=== PATIENT | female | born 1950 | race Caucasian/White ===

== ENCOUNTER 2018-05-14 20:01 | Emergency (ER) | payer MEDICARE, OTHER ==
[2018-05-14 20:22] VITALS: BP 152/81; TEMP 97.8; O2SAT 95
[2018-05-14] MEDS: HYDROcodone 7.5MG/APAP 325MG 1 EA TAB PO ONE (21:25)
--- NOTE | 2018-05-14 21:27 | ED.PDOC ---
History of Present Illness - General Chief Complaint: Upper Extremity Injury Stated Complaint: rt arm/hand pain Time Seen by Provider: 05/14/18 20:20 Source: patient Exam Limitations: no limitations - History of Present Illness Initial Comments: the patient is a 67-year-old female presenting to the emergency room secondary to pain in her right forearm and her right ulnar aspect of her right hand after a tree limb fell on her part. It was a large tree limb. She does have swelling over the distal and the fifth metacarpal. She is neurovascularly preserved. Range of motion is preserved. She is uncomfortable to palpation over the area. Occurred: just prior to arrival Pain - Upper Extremity: moderate: Wrist, right, severe: Hand, right Method of Injury: other Improving Factors: immobilization Worsening Factors: movement Allergies/Adverse Reactions: Allergies NO KNOWN ALLERGY Allergy (Verified 05/14/18 20:21) Home Medications: Ambulatory Orders Bhar[place]-Upnm-Vrphwmuewl [Fioricet] 1 ea PO Q8H PRN #21 tab 05/14/18 Citalopram 05/14/18 Gabapentin [Neurontin] 05/14/18 Metoprolol Tartrate [Lopressor] 05/14/18 Pantoprazole Tablet [Protonix] 05/14/18 hydroCHLOROthiazide [Hydrochlorothiazide] 05/14/18 Review of Systems - Review of Systems Constitutional: States: no symptoms reported EENTM: States: no symptoms reported Respiratory: States: no symptoms reported Cardiology: States: no symptoms reported Gastrointestinal/Abdominal: States: no symptoms reported Genitourinary: States: no symptoms reported Musculoskeletal: States: see HPI Skin: States: see HPI Neurological: States: no symptoms reported Endocrine: States: no symptoms reported All other Systems: No Change from Baseline Past Medical History (General) - Patient Medical History Hx Hypertension: Yes Hx Diabetes: No Hx Gastroesophageal Reflux: Yes Surgical History: appendectomy, cholecystectomy - Vaccination History Hx Tetanus, Diphtheria Vaccination: No - Triage Comment ED Triage Comment: edema noted to hand at 4th and 5th digits, also edema to rt forearm where tree branch landed Family Medical History - Family History Father Family History: Unknown Physical Exam - Physical Exam General Appearance: Alert, Comfortable, No apparent distress Eyes, Ears, Nose, Throat Exam: PERRL/EOMI Neck: full range of motion, supple Cardiovascular/Respiratory: normal peripheral pulses, no respiratory distress Abdominal Exam: non-tender Back Exam: normal inspection, no vertebral tenderness Shoulder Exam: normal inspection, non-tender, no evidence of injury, normal ROM Elbow/Forearm Exam: normal inspection, non-tender, no evidence of injury, normal ROM Wrist Exam: normal ROM, abrasions - very mild superficial. Swelling as above. Hand Exam: bone tenderness, deformity, ecchymosis, swelling - see history of present illness Neuro/Tendon: normal sensation, normal motor functions, normal tendon functions , responds to pain, no evidence tendon injury Mental Status: alert, oriented x 3 Skin Exam: normal color - bruising to the right hand and forearm Comments: Vital Signs - 24 hr 05/14/18 20:16 Temperature 97.8 F Pulse Rate [ 68 Right] Respiratory 16 Rate Blood Pressure 152/81 [Left Arm] O2 Sat by Pulse 95 Oximetry Progress - Progress Progress: 05/14/18 21:28 the patient is a 67-year-old female presenting to the emergency room after having had a tree limb fall on her right forearm and hand. Final read of the x-rays is pending by radiology at this time secondary to technological difficulties however the patient does have an obvious proximal fifth metacarpal fracture. No other fractures of the forearm or hand are apparent on the non- expandable x-rays. The patient is being placed in a ulnar gutter splint with a bend placed at the metacarpal phalangeal joint to preserve carpal height and alignment. Due to the mild to moderate displacement of the base of the fifth metacarpal, I do want her to follow up with orthopedics later this coming week for a repeat x-ray and casting or other intervention as appropriate. She'll be written for Fioricet for some pain control and she can use ibuprofen as needed as well. ER warnings were given for any significant worsening. She is neurovascularly intact at this time. Follow-up as above. Departure - Departure Clinical Impression: Closed boxer's fracture Qualifiers: Encounter type: initial encounter Qualified Code(s): S62.339A - Displaced fracture of neck of unspecified metacarpal bone, initial encounter for closed fracture ICD-10 Supporting Text: right hand Disposition: Discharge to Home or Self Care Condition: Fair Departure Forms: ED Discharge - Pt. Copy, Patient Portal Self Enrollment Instructions: Boxer's Fracture (DC) Diet: regular diet Activity: no pushing/pulling with affected limb Prescriptions: Uykdabwsgyedn-Ymsn-Oiruhalekg [Fioricet] 1 ea PO Q8H PRN #21 tab PRN Reason: Pain Home Medications: Ambulatory Orders Cjfxxuvsvxrqg-Agsd-Gkgkxehgvq [Fioricet] 1 ea PO Q8H PRN #21 tab 05/14/18 Citalopram 05/14/18 Gabapentin [Neurontin] 05/14/18 Metoprolol Tartrate [Lopressor] 05/14/18 Pantoprazole Tablet [Protonix] 05/14/18 hydroCHLOROthiazide [Hydrochlorothiazide] 05/14/18 Additional Instructions: the patient is a 67-year-old female presenting to the emergency room after having had a tree limb fall on her right forearm and hand. Final read of the x-rays is pending by radiology at this time secondary to technological difficulties however the patient does have an obvious proximal fifth metacarpal fracture. No other fractures of the forearm or hand are apparent on the non- expandable x-rays. The patient is being placed in a ulnar gutter splint with a bend placed at the metacarpal phalangeal joint to preserve carpal height and alignment. Due to the mild to moderate displacement of the base of the fifth metacarpal, I do want her to follow up with orthopedics later this coming week for a repeat x-ray and casting or other intervention as appropriate. She'll be written for Fioricet for some pain control and she can use ibuprofen as needed as well. ER warnings were given for any significant worsening. She is neurovascularly intact at this time. Follow-up as above.
--- NOTE | 2018-05-14 22:28 | RAD ---
EXAM DESCRIPTION: Forearm,Right (accession [id number]), Hand,Right 2 Views (accession [id number]) CLINICAL HISTORY: tree limb fell on arm/hand COMPARISON: None FINDINGS: AP and lateral views of the right forearm and right wrist were submitted. There is an acute displaced oblique fracture of the proximal fifth metacarpal bone. Decreased bone mineralization compatible with osteopenia. There is no radiopaque foreign body material. IMPRESSION: Acute displaced fracture of the proximal fifth metacarpal bone. Electronically signed by: Pete Chaudhry MD 05/14/2018 10:26 PM CDT
--- NOTE | 2018-05-14 22:28 | RAD ---
EXAM DESCRIPTION: Forearm,Right (accession [id number]), Hand,Right 2 Views (accession [id number]) CLINICAL HISTORY: tree limb fell on arm/hand COMPARISON: None FINDINGS: AP and lateral views of the right forearm and right wrist were submitted. There is an acute displaced oblique fracture of the proximal fifth metacarpal bone. Decreased bone mineralization compatible with osteopenia. There is no radiopaque foreign body material. IMPRESSION: Acute displaced fracture of the proximal fifth metacarpal bone. Electronically signed by: Pete Chaudhry MD 05/14/2018 10:26 PM CDT
== END 2018-05-14 21:50 | disposition home or self-care (01) ==
LOC: ER 20:01
DX: S62.339A Displaced fracture of neck of unspecified metacarpal bone, initial encounter for closed fracture (principal); I10 Essential (primary) hypertension; K21.9 Gastro-esophageal reflux disease without esophagitis; Z79.899 Other long term (current) drug therapy; W20.8XXA Other cause of strike by thrown, projected or falling object, initial encounter